=== PATIENT | female | born 1980 | race Two or more races ===

== ENCOUNTER 2025-02-18 13:19 | Emergency (ER) | payer MEDICAID ==
[~2025-02-18] VITALS: Ht 177.8 cm; Wt 105.0 kg
[2025-02-18 13:41] VITALS: O2SAT 99
[2025-02-18] MEDS: IBUPROFEN 600MG TABLET PO ONE (14:14)
[2025-02-18 16:24] VITALS: BP 113/51; PULSE 84; RESP 16; TEMP 36.9; O2SAT 100
== END 2025-02-18 16:28 | disposition home or self-care (01) ==
LOC: ER 13:19
DX: R07.89 Other chest pain (principal); R42 Dizziness and giddiness; Z98.51 Tubal ligation status; W01.0XXA Fall on same level from slipping, tripping and stumbling without subsequent striking against object, initial encounter; Y93.01 Activity, walking, marching and hiking; Y92.480 Sidewalk as the place of occurrence of the external cause; Y99.8 Other external cause status
CPT/HCPCS: 71101; 71120; 81025; 99284